=== PATIENT | male | born 1970 | race Asian ===

== ENCOUNTER 2019-08-31 13:07 | Emergency (ER) | payer MEDICAID ==
[~2019-08-31] VITALS: Ht 175.3 cm; Wt 100.7 kg
[2019-08-31 17:49] VITALS: BP 176/90
== END 2019-08-31 15:00 | disposition home or self-care (01) ==
LOC: ED 13:07
DX: B34.9 Viral infection, unspecified (principal); I10 Essential (primary) hypertension; F17.200 Nicotine dependence, unspecified, uncomplicated; Z71.6 Tobacco abuse counseling
CPT/HCPCS: 99406; J1885